=== PATIENT | female | born 1955 | race Caucasian/White ===

== ENCOUNTER 2016-06-12 11:51 | Day surgery (SDC) | payer MEDICARE ==
[~2016-06-12 11:51] MED LIST: ACCUPRIL20 MG; ANTACID650 MG PO; ARICEPT10 MG; ARICEPT5 M1 PO; CALCIUM + D T1 UDTAB; CALCIUM600 MG PO; CEFDINIR300 M1 PO; CELEXA40 M2 PO; CELEXA40 MG PO; CENTRUM SILVER1 TA; CLARITIN10 M6 PO; CRESTOR10 MG; DULCOLAX10 MG/SUPP RC; EVISTA60 MG; FLEXERIL10 MG PO; GARLIC1 CAP; GLIPIZIDE5 M1 PO; GLUCAGEN1 MG/KIT IJ; GLUCAGON1 MG/KIT IM; HUMALOG100 U/ML SQ; JANUMET 50-1,1 UDTAB; KEPPRA500 M3 PO; LEXAPRO10 MG; LOPRESSOR25 MG/TA2 PO; MAGNESIUM30 MG PO; MIRALAX17 G1 PO; MULTI VITAMIN1 EAC2 PO; NAMENDA10 M1 PO; NAMENDA10 MG; NORVASC5 M2 PO; POTASSIUM CHLO10 ME1 PO; PREDNISONE20 MG PO; TYLENOL325 MG PO; VERAMYST10 GM; VITAMIN C; VITAMIN D31000 UNI2 PO; VITAMIN D31000 UNI3 PO; ZETIA10 MG; ZYRTEC10 MG; [UNRECOGNIZED DRUG - OTHER]
[2016-06-12 13:14] LABS: BASO % 0.3 % (0-2); EOS % 5.4 % (0-7); EOSINOPHIL ABSOLUTE COUNT 0.5 tho/cmm (0.0-0.7); HCT-HEMATOCRIT 48.1 % (34.0-49.0); HGB-HEMOGLOBIN 15.5 gm/dl (12.0-15.5); LYMPH % 24.1 % (20-45); LYMPH ABSOLUTE COUNT 2.1 tho/cmm (0.8-4.5); MCH (MEAN CORPUSCULAR HGB) 28.9 pg (28.0-32.0); MCHC MEAN CORPUSCULAR HGB CONC 32.2 % (32.0-36.0); MCV (MEAN CELL VOLUME) 89.6 fl (82.0-96.0); MEAN PLATELET VOLUME 10.5 cmc (9.4-12.4); MONO % 8.5 % (0-12); MONOCYTE ABSOLUTE COUNT 0.7 tho/cmm (0.0-1.2); NEUTROPHIL ABSOLUTE COUNT 5.3 tho/cmm (1.6-8.0); NEUTROPHIL-AUTOMATED 5.3 tho/cmm (1.6-8.0); NEUTROPHILS % 61.7 % (40-80); PLATELET COUNT 246 tho/cmm (150-450); RED BLOOD COUNT 5.37 mil/cmm (4.00-5.20); RED CELL DISTRIBUTION WIDTH 13.9 % (12.4-16.4); WHITE BLOOD COUNT 8.7 tho/cmm (4.0-10.0)
[2016-06-12 13:16] LABS: PROTHROMBIN TIME 11.3 SECONDS (9.0-13.6)
[2016-06-12 13:22] LABS: ANION GAP 10 mmol/L (0-20); BLOOD UREA NITROGEN 14 mg/dl (6-24); CALCIUM 9.6 mg/dl (8.5-10.5); CARBON DIOXIDE-VENOUS 29 mmol/L (22-32); CHLORIDE 104 mmol/l (96-110); CREATININE 1.23 mg/dl (0.50-1.10); GLUCOSE 113 mg/dL (70-110); SODIUM 139 mmol/L (135-145); eGFR VALUE FOR BLACK 55 mL/Min
[2016-06-12 13:26] LABS: POTASSIUM 4.3 mmol/L (3.7-5.1)
[2016-10-30] MEDS ORDERED: DIFLUCAN100 M1 PO (15:08)
[2016-10-30] MEDS ORDERED: CEFDINIR300 M1 PO (15:10)
[2016-10-30] MEDS ORDERED: CUBICIN500 MG IVP (15:10)
[2016-10-30] MEDS ORDERED: CALMOSEPTINE O3.5 G1 TP (15:11)
[2016-10-30] MEDS ORDERED: CELEXA20 M2 PO (15:12)
== END 2016-06-12 19:35 ==
LOC: SHSB 11:51 → ORW 14:38 → SHSB 16:30
PROVIDERS: Urology
PROC: 0T778DZ Dilation of Left Ureter with Intraluminal Device, Via Natural or Artificial Opening Endoscopic (ICD-10-PCS; principal; 2016-06-12)
PROC: 0TF4XZZ Fragmentation in Left Kidney Pelvis, External Approach (ICD-10-PCS; 2016-06-12)
DX: N20.0 Calculus of kidney (principal); I10 Essential (primary) hypertension; G40.909 Epilepsy, unspecified, not intractable, without status epilepticus; E11.9 Type 2 diabetes mellitus without complications; M81.0 Age-related osteoporosis without current pathological fracture; F32.9 Major depressive disorder, single episode, unspecified; I71.4 Abdominal aortic aneurysm, without rupture; G23.1 Progressive supranuclear ophthalmoplegia [Steele-Richardson-Olszewski]; Z79.899 Other long term (current) drug therapy; Z88.0 Allergy status to penicillin; Z88.2 Allergy status to sulfonamides; Z88.8 Allergy status to other drugs, medicaments and biological substances; Z87.891 Personal history of nicotine dependence; Z87.440 Personal history of urinary (tract) infections; Z90.49 Acquired absence of other specified parts of digestive tract; Z90.89 Acquired absence of other organs; Z98.890 Other specified postprocedural states
CPT/HCPCS: C1769; C2617; J1956; J2405; Q9958

== ENCOUNTER 2016-08-18 07:26 | Day surgery (SDC) | payer MEDICARE ==
[2016-08-18 08:18] LABS: PROTHROMBIN TIME 11.9 SECONDS (9.0-13.6)
[2016-10-30] MEDS ORDERED: DIFLUCAN100 M1 PO (15:08)
[2016-10-30] MEDS ORDERED: CEFDINIR300 M1 PO (15:10)
[2016-10-30] MEDS ORDERED: CUBICIN500 MG IVP (15:10)
[2016-10-30] MEDS ORDERED: CALMOSEPTINE O3.5 G1 TP (15:11)
[2016-10-30] MEDS ORDERED: CELEXA20 M2 PO (15:12)
== END 2016-08-18 13:15 ==
LOC: SHSB 07:26 → ORE 10:07 → PACU 11:03 → SHSB 11:49
PROVIDERS: Urology
PROC: 0TF7XZZ Fragmentation in Left Ureter, External Approach (ICD-10-PCS; principal; 2016-08-18)
DX: N20.1 Calculus of ureter (principal); J44.9 Chronic obstructive pulmonary disease, unspecified; I12.9 Hypertensive chronic kidney disease with stage 1 through stage 4 chronic kidney disease, or unspecified chronic kidney disease; E11.22 Type 2 diabetes mellitus with diabetic chronic kidney disease; N18.9 Chronic kidney disease, unspecified; F32.9 Major depressive disorder, single episode, unspecified; E78.5 Hyperlipidemia, unspecified; G30.9 Alzheimer's disease, unspecified; F02.80 Dementia in other diseases classified elsewhere, unspecified severity, without behavioral disturbance, psychotic disturbance, mood disturbance, and anxiety; M81.0 Age-related osteoporosis without current pathological fracture; Z88.0 Allergy status to penicillin; Z88.2 Allergy status to sulfonamides; Z88.8 Allergy status to other drugs, medicaments and biological substances; Z90.49 Acquired absence of other specified parts of digestive tract; Z79.899 Other long term (current) drug therapy; Z98.890 Other specified postprocedural states
CPT/HCPCS: J1956